=== PATIENT | female | born 1985 ===

== ENCOUNTER 2017-08-10 18:38 | Emergency (ER) | payer SELFPAY ==
[2017-08-10 18:53] VITALS: BP 118/79; PULSE 92; TEMP 98.5; O2SAT 98
[2017-08-10 18:59] VITALS: RESP 18
--- NOTE | 2017-08-10 19:05 | ED PDOC ---
Arrival/HPI - General Chief Complaint: Dizziness/Lightheaded Time Seen by Provider: 08/10/17 19:04 Historian: Patient - History of Present Illness Narrative History of Present Illness (Text): 08/10/17 19:07 A 31 year old female whose past medical history includes a and right sided hearing loss, presents to the emergency department with 4 day duration intermittent dizziness and ringing in her ear with associated nausea and vomiting. She states that the dizziness becomes worse with movement and describes the dizziness as a room spinning sensation. She denies fevers, chills , chest pain, shortness of breath headache, abdominal pain, diarrhea, neck pain , back pain, numbness/weakness, or any other complaints. Time/Duration: Other (4 Days Ago) Symptom Onset: Sudden Symptom Course: Unchanged Activities at Onset: Rest, Light Context: Home Past Medical History - Provider Review Nursing Documentation Reviewed: Yes - Infectious Disease Hx of Infectious Diseases: None - Reproductive Menopause: No - HEENT Hx Deafness: Yes (rt ear) - Psychiatric Hx Substance Use: No - Surgical History Hx Section: Yes Hx Tubal Ligation: Yes Other/Comment: tummy tuck - Anesthesia Hx Anesthesia: Yes Hx Anesthesia Reactions: No Family/Social History - Physician Review Nursing Documentation Reviewed: Yes Family/Social History: No Known Family HX Smoking Status: Unknown If Ever Smoked Hx Alcohol Use: Yes Frequency of alcohol use: Socially Hx Substance Use: No Allergies/Home Meds Allergies/Adverse Reactions: Allergies No Known Allergies Allergy (Verified 08/10/17 18:53) Review of Systems - Physician Review All systems were reviewed & negative as marked: Yes - Review of Systems Constitutional: absent: Fevers, Night Sweats ENT: Tinnitus Respiratory: absent: SOB Cardiovascular: absent: Chest Pain Gastrointestinal: Nausea, Vomiting. absent: Abdominal Pain, Diarrhea Musculoskeletal: absent: Back Pain, Neck Pain Neurological: Dizziness (Room spinning sensation.). absent: Headache Physical Exam - Physical Exam Narrative Physical Exam (Text): 08/10/17 19:13 Constitutional: No acute distress. Head: Normocephalic. Atraumatic. Eyes: PERRL. No nystagmus. ENT: Moist mucous membranes. TM normal. Neck: Supple. Cardiovascular: Regular rate. Chest: No tenderness. Respiratory: Clear to auscultation bilaterally. GI: Soft. Nontender. Nondistended. Back: No CVA tenderness. Musculoskeletal: No tenderness or swelling of extremities. Skin: No rash. Neurologic: Alert, no focal deficit. Finger to nose and heel to barney normal. Vital Signs Temp Pulse Resp BP Pulse Ox 08/10/17 18:58 98.5 F 92 H 18 118/79 98 08/10/17 18:47 98.5 F 92 H 16 118/79 98 Temperature: Afebrile Blood Pressure: Normal Pulse: Tachycardic Respiratory Rate: Normal Appearance: Positive for: Well-Appearing, Non-Toxic, Comfortable Pain Distress: None Mental Status: Positive for: Alert and Oriented X 3 Medical Decision Making ED Course and Treatment: 08/10/17 19:15 Impression: A 31 year old female with 4 day duration intermittent dizziness, tinnitus, vomiting, and nausea. Plan: -- Antivert F/u ENT, return to ED for numbness, weakness, facial droop, or any other problem. - Medication Orders Current Medication Orders: Discontinued Medications Home Med (*Refrigerator Open) Confirm Administered Dose 1 unit XX .STK-MED ONE Stop: 08/10/17 19:21 Meclizine HCl (Antivert) 50 mg PO STAT STA Stop: 08/10/17 19:05 Last Admin: 08/10/17 19:18 Dose: 50 mg - Scribe Statement The provider has reviewed the documentation as recorded by the Veronica Colbert Provider Scribe Attestation: All medical record entries made by the Scribe were at my direction and personally dictated by me. I have reviewed the chart and agree that the record accurately reflects my personal performance of the history, physical exam, medical decision making, and the department course for this patient. I have also personally directed, reviewed, and agree with the discharge instructions and disposition. Disposition/Present on Arrival - Present on Arrival Any Indicators Present on Arrival: No History of DVT/PE: No History of Uncontrolled Diabetes: No Urinary Catheter: No History of Decub. Ulcer: No History Surgical Site Infection Following: None - Disposition Have Diagnosis and Disposition been Completed?: Yes Diagnosis: Vertigo Disposition: HOME/ ROUTINE Disposition Time: 19:05 Patient Plan: Discharge Patient Problems: Current Active Problems Problem Status Onset Vertigo Acute Condition: STABLE Discharge Instructions (ExitCare): Benign Paroxysmal Positional Vertigo (ED) Prescriptions: Meclizine [Antivert] 25 mg PO TID PRN #20 tab PRN Reason: Dizziness Referrals: Wilber Pandya DO [Staff Provider] - Follow up with primary Forms: [employer] (Malay)
== END 2017-08-10 19:50 | disposition home or self-care (01) ==
LOC: ED 18:38
DX: R42 Dizziness and giddiness (principal)